=== PATIENT | male | born 1975 | race Caucasian/White ===

== ENCOUNTER 2018-02-14 20:20 | Emergency (ER) | payer BC ==
[2018-02-14] MEDS ORDERED: Lidocaine 1% 10 ML MDV INJECT ONE (20:39)
[2018-02-14] MEDS ORDERED: Diphtheria,Pertussis(Acell),Tetanus Vaccine 0.5 ML SDV IM ONE (20:39)
--- NOTE | 2018-02-14 20:39 | EDM.PDOC ---
ED HPI GENERAL MEDICAL PROBLEM - General Chief Complaint: ENT Problem Stated Complaint: TOOK A BASEBALL TO THE MOUTH Time Seen by Provider: 02/14/18 20:34 Source of Information: Reports: Patient History Limitations: Reports: No Limitations - History of Present Illness INITIAL COMMENTS - FREE TEXT/NARRATIVE: 42-year-old male presents to the ED for evaluation of acute injuries to his right upper and lower lips. Patient states was playing baseball basal was thrown out of apparently did a 1 hopping came up and struck him right in the mouth. The suffered deep lacerations to the upper and lower lip. The lower lip is split in the midline to the gingiva margin. He also spit up three of his teeth. Broke his partial palate. Patient has had a " few " beers tongiht. Denies any other injuries. Onset: Today Onset Date: 02/14/18 Onset Time: 20:00 Duration: Minutes: Location: Reports: Face (Injuries to both upper and lower lips. Dental fractures as well.) Quality: Reports: Ache Severity: Moderate Improves with: Reports: None Worsens with: Reports: None Context: Reports: Trauma (Blunt force trauma after being struck in the mid face by a baseball that was thrown at him.). Denies: Activity, Exercise, Lifting, Sick Contact, Other Associated Symptoms: Reports: No Other Symptoms. Denies: Confusion, Chest Pain , Cough, cough w sputum, Fever/Chills, Headaches, Loss of Appetite, Malaise, Nausea/Vomiting, Rash, Seizure, Shortness of Breath, Syncope Treatments HEARING HEALTHCARE PRACTITIONER: Reports: Other (see below) (None.) - Related Data Allergies Allergy/AdvReac Type Severity Reaction Status Date / Time No Known Allergies Allergy Verified 02/14/18 20:29 Home Meds: Home Meds Lisinopril 10 mg PO DAILY 02/14/18 [History] Social & Family History - Living Situation & Occupation Living situation: Reports: Occupation: Employed ED ROS ENT - Review of Systems Review Of Systems: See Below Constitutional: Denies: Fever, Chills, Malaise, Weakness, Decreased Appetite, Weight Loss HEENT: Reports: Other (Injuries are to his upper and lower lips. And to his dental bridge. Broke 3 teeth off of the). Denies: Ear Pain, Eye Discharge, Eye Pain, Glasses, Hearing Loss, Nosebleed, Nose Pain, Rhinitis, Sinus Problem, Throat Pain, Throat Swelling Respiratory: Reports: No Symptoms ( dental bridge.) Cardiovascular: Reports: No Symptoms Endocrine: Reports: No Symptoms GI/Abdominal: Reports: No Symptoms : Reports: No Symptoms Musculoskeletal: Reports: No Symptoms Skin: Reports: No Symptoms Neurological: Reports: No Symptoms Psychiatric: Reports: No Symptoms Hematologic/Lymphatic: Reports: No Symptoms ED EXAM, ENT - Physical Exam Exam: See Below Exam Limited By: No Limitations General Appearance: Alert, WD/WN, Mild Distress Mouth/Throat: Normal Gums, Normal Oropharynx, Bleeding, Dental Trauma (Fracture was to his dental plate with loss of 3 teeth.), Other (Patient has split his lower lip from the midline all the way to the gingiva gingiva margin on the inside of his mouth. The upper lip is split tear in the midline and then the laceration travels to the right side.). No: Normal Lips, Normal Teeth, Dental Tenderness Head: Atraumatic, Normocephalic ( Both wounds are actively bleeding.) Neck: Normal Inspection, Supple, Non-Tender, Full Range of Motion Respiratory/Chest: No Respiratory Distress, Lungs Clear, Normal Breath Sounds, Chest Non-Tender ED ENT PROCEDURES - Laceration/Wound Repair Upper Face Lac/wound length in cm: 3.5 (Left upper lip with a large skin flap over the Lissett border. Complicated repair with minimal debridement) Appearance: Subcutaneous, Stellate (Morbid oval-shaped avulsion injury that went to the midline and then across to the right side of his upper lip.), Clean Distal NVT: Neuro & Vascular Intact Anesthetic Type: Local Local Anesthesia - Lidocaine (Xylocaine): 1% Plain Local Anesthetic Volume: 5cc Skin Prep: Saline Suture Size: 4-0 # of Sutures: 9 Repaired with: Vicryl Course - Vital Signs Last Recorded V/S: Last Vital Signs Temp 36.3 C 02/14/18 20:26 Pulse 81 02/14/18 20:26 Resp 18 02/14/18 20:26 BP 133/88 02/14/18 20:26 Pulse Ox 98 02/14/18 20:26 - Orders/Labs/Meds Orders: Active Orders 24 hr Category Date Time Status Vaccines to be Administered [RC] PER UNIT ROUTINE Care 02/14/18 20:39 Active Meds: Medications Discontinued Medications Generic Name Dose Route Start Last Admin Trade Name Joe PRN Reason Stop Dose Admin Diphtheria/Tetanus/Acell Pertussis 0.5 ml 02/14/18 20:39 02/14/18 21:07 Adacel IM 02/14/18 20:40 0.5 ml .ONCE ONE Administration Lidocaine HCl 10 ml 02/14/18 20:39 02/14/18 21:09 Xylocaine 1% INJECT 02/14/18 20:40 10 ml ONETIME ONE Administration - Radiology Interpretation Free Text/Narrative:: 42-year-old male attends the ED after suffering blunt trauma to both of his lips after being struck by a baseball that was thrown at him. Baseball did a 1 hopping came up and struck him in the lips. His suffered a deep laceration in the midline of the lower lip that travels from the Stark border to the gingiva margin. Upper lip is torn in the midline of the Lissett border and travels to the right side. Skin is avulsed almost completely from this area. He did fracture 3 teeth from his dental plate. No injuries to his nose or mandible. Plan wounds will be cleansed and then sutured under local anesthetic using lidocaine 1%. Was obese sutured with 4-0 Vicryl suture. Departure - Departure Time of Disposition: 22:08 Disposition: Home, Self-Care 01 Preliminary Cause of *Q: Respiratory Failure Condition: Fair Clinical Impression: Laceration of upper lip, complicated Qualifiers: Encounter type: initial encounter Qualified Code(s): S01.511A - Laceration without foreign body of lip, initial encounter Laceration of lower lip, complicated Qualifiers: Encounter type: initial encounter Qualified Code(s): S01.511A - Laceration without foreign body of lip, initial encounter - Discharge Information Instructions: Mouth Laceration, [id number] Referrals: PCP,None [Primary Care Provider] - Forms: ED Department Discharge Additional Instructions: Evaluation the emergency room today in regards to blunt force trauma to your midface that occurred from a 1 skip baseball. Was thrown at 2 most of the ground history directly in the mouth. This resulted in dental injuries to your dental plate with loss of 3 teeth. Resulted in a significant laceration to the upper lip with a large flap that was replaced and sutured back in place under local anesthetic. Also split the midline of your lower lip down to the gingiva margin on the inside. Both wounds involve the vermilion border or the pink part of our lips. 9 sutures were placed in the upper wound and 8 in the lower wound to provide wound closure and to stop the bleeding. Treatment is to eat and drink as per normal. The stitches are dissolvable and will start of fall out over a period of 7-10 days. Severely she can just picked him out of the lip. Motrin 600 mgms every 6 hours needed for pain relief. Ice pack to your lips tonight for 15 minutes out of every hour or so may be useful to reduce pain and swelling. Your tetanus, diphtheria and pertussis vaccine was updated today and is good for the next 10 years. - My Orders Last 24 Hours: My Active Orders 02/14/18 20:39 Vaccines to be Administered [RC] PER UNIT ROUTINE - Assessment/Plan Last 24 Hours: My Active Orders 02/14/18 20:39 Vaccines to be Administered [RC] PER UNIT ROUTINE ED LACERATION PROCEDURES - Laceration/Wound Repair Upper Face Lac/wound length in cm: 3.0 Appearance: Subcutaneous, Clean Distal NVT: Neuro & Vascular Intact Anesthetic Type: Local Local Anesthesia - Lidocaine (Xylocaine): 1% Plain Local Anesthetic Volume: 5cc Closed with: Sutures Suture Size: 4-0 # of Sutures: 8 Repaired with: Vicryl
== END 2018-02-14 22:15 | disposition home or self-care (01) ==
LOC: JD.ED 20:20
DX: S01.511A Laceration without foreign body of lip, initial encounter (principal); Z23 Encounter for immunization; W21.03XA Struck by baseball, initial encounter
CPT/HCPCS: 12013; 90471; 90715; 99283-25